=== PATIENT | male | born 1960 | race Caucasian/White ===

== ENCOUNTER → 2024-01-17 | Outpatient (CLI) | payer MEDICARE, OTHER | LOC: CPPFTMAIN 13:46 | PROVIDERS: ATTEND Internal Medicine | DX: J44.9 Chronic obstructive pulmonary disease, unspecified (principal) | CPT/HCPCS: 94060; 94726; 94729 ==

== ENCOUNTER 2024-02-17 09:00 | Day surgery (SDC) | payer MEDICARE, OTHER ==
[2024-02-17 09:49] VITALS: RESP 16; TEMP 96.9
[2024-02-17] MEDS: IV FLUID CONTINUATION 1,000 ML IV ONE (09:51)
[2024-02-17] MEDS: LACTATED RINGERS 1,000 ML IV SCH (09:51)
[2024-02-17] MEDS ORDERED: PROPOFOL 10 MG/ML 20 ML VIAL IV ONE (10:23)
[2024-02-17] MEDS ORDERED: LIDOCAINE 1% INJ 10MG/ML (20 ML MDV) ONE (10:23)
--- NOTE | 2024-02-17 10:45 | P.PCN ---
Date of Procedure: 02/17/24 Procedure(s) Performed: BRIEF HISTORY: Patient is a 64-year-old pleasant white male scheduled for an elective colonoscopy as a part of screening for colon cancer/positive Cologuard. PROCEDURE PERFORMED: Colonoscopy with snare polypectomy PREOPERATIVE DIAGNOSIS: Screening for colon cancer/positive Cologuard. IV sedation per Anesthesia. PROCEDURE: After informed consent was obtained, the patient, was brought into the endoscopy unit. IV sedation was administered by Anesthesia under continuous monitoring. Digital rectal examination was normal. Initially the Olympus CF-160 flexible video colonoscope was then inserted in the rectum, gradually advanced into the cecum without any difficulty. Careful examination was performed as the scope was gradually being withdrawn. Ileocecal valve and the appendiceal orifice were visualized and appeared normal. Prep was excellent. Mucosa of the cecum, ascending colon, transverse colon, descending colon appeared normal. The sigmoid colon there was a 1 cm polyp that was removed by snare polypectomy. Rest of the, sigmoid colon, and rectum appeared normal. Retroflexion was performed in the rectum and no lesions were seen. The patient tolerated the procedure well. IMPRESSION: 1 cm distal sigmoid colon polyp status post snare polypectomy Rest of the colon appeared normal RECOMMENDATIONS: Findings of this examination were discussed with the patient as well as his family.. He was advised to follow-up with the biopsy results. If the biopsy reveals adenoma he can have repeat colonoscopy in 3 years.
[2024-02-17 11:16] VITALS: BP 100/54; PULSE 55
== END 2024-02-17 11:24 | disposition home or self-care (01) ==
LOC: ORWHC2ENDO 09:00
PROVIDERS: ATTEND Internal Medicine Gastroenterology
DX: D12.5 Benign neoplasm of sigmoid colon (principal); J44.9 Chronic obstructive pulmonary disease, unspecified; F17.210 Nicotine dependence, cigarettes, uncomplicated; Z86.73 Personal history of transient ischemic attack (TIA), and cerebral infarction without residual deficits; Z88.0 Allergy status to penicillin; Z79.82 Long term (current) use of aspirin
CPT/HCPCS: 88305; 45385; J2003; J2704

== ENCOUNTER → 2024-06-19 | Outpatient (CLI) | payer MEDICARE, OTHER ==
[2024-06-19 16:44] LABS: ALT 18 U/L (10-49); AST 22 U/L (14-35); Albumin 4.5 g/dL (3.8-4.9); Albumin/Globulin Ratio 1.88 Ratio (1.60-3.17); Alkaline Phosphatase 108 U/L (41-126); BUN/Creat Ratio 17.22 Ratio (12.00-20.00); Blood Urea Nitrogen 15.5 mg/dL (9.0-27.0); Calcium 9.9 mg/dL (8.7-10.3); Carbon Dioxide 27.2 mmol/L (21.6-31.8); Chloride 107 mmol/L (96-109); Chol/HDL Ratio 3.63 Ratio; Globulin 2.4 g/dL (1.6-3.3); Glucose 97 mg/dL (70-110); LDL Cholesterol,Calculated 116.2 mg/dL (0.0-131.0); Potassium 4.4 mmol/L (3.5-5.5); Sodium 145 mmol/L (135-145); Total Bilirubin 0.7 mg/dL (0.3-1.2); Total Protein 6.9 g/dL (6.2-8.2)
[2024-06-19 16:46] LABS: Basophils # (A) 0.05 X 10*3/uL (0.00-0.10); Basophils % (A) 0.7 %; Eosinophils # (A) 0.12 X 10*3/uL (0.04-0.35); Eosinophils % (A) 1.6 %; HCT 44.5 % (39.6-50.0); HGB 15.2 g/dL (13.0-17.0); Lymphocytes % (A) 26.3 %; MCH 33.3 pg (27.0-32.0); MCHC 34.2 g/dL (32.0-37.0); MCV 97.4 FL (80.0-97.0); Mean Platelet Volume 10.7 FL (9.5-12.2); Monocytes # (A) 0.69 X 10*3/uL (0.20-1.00); Monocytes % (A) 9.1 %; NRBC Per 100 WBC 0 X 10*3/uL (0.00-0.01); Neutrophils # (A) 4.72 X 10*3/uL (1.80-7.70); Neutrophils % (A) 61.9 %; Platelet Count 219 X 10*3/uL (140-440); RBC 4.57 X 10*6/uL (4.40-5.60); WBC 7.61 X 10*3/uL (4.50-10.00)
== END | disposition home or self-care (01) ==
LOC: LABWHC1 08:52
PROVIDERS: ATTEND Internal Medicine
DX: E78.5 Hyperlipidemia, unspecified (principal); R73.01 Impaired fasting glucose
CPT/HCPCS: 36415; 80053; 80061; 83036; 85025

== ENCOUNTER 2024-09-30 18:01 | Observation (INO) | payer MEDICARE, OTHER ==
[2024-09-30] MEDS: NITROGLYCERIN EXTENDED RELEASE 2.5 MG CAPSULE.ER PO STA (18:36)
[2024-09-30] MEDS: NITROGLYCERIN SL TABS 0.4 MG TAB SUBLINGUAL STA ×3 (18:37→19:41)
[2024-09-30] MEDS: SODIUM CHLORIDE 0.9% 1,000 ML IV STA (19:36)
[2024-09-30] MEDS: ASPIRIN 81 MG PO STA (19:36)
[2024-09-30] MEDS: methylPREDNISolone SOD SUCCI 125 MG/2 ML VIAL IV STA (19:39)
[2024-09-30 19:45] LABS: Basophils # (A) 0.02 10*3/uL (0.00-0.10); Basophils % (A) 0.2 %; Eosinophils # (A) 0.08 10*3/uL (0.04-0.35); Eosinophils % (A) 0.7 %; HCT 40.3 % (39.6-50.0); HGB 14.5 g/dL (13.0-17.0); Lymphocytes # (A) 1.55 10*3/uL (0.90-5.00); Lymphocytes % (A) 14.4 %; MCH 34.4 pg (27.0-32.0); MCV 95.7 fL (80.0-97.0); Monocytes # (A) 0.91 10*3/uL (0.20-1.00); Monocytes % (A) 8.4 %; Neutrophils # (A) 8.21 10*3/uL (1.80-7.70); Platelet Count 204 10*3/uL (140-440); RBC 4.21 10*6/uL (4.40-5.60); RDW 13.5 % (11.5-14.5)
[2024-09-30 19:59] LABS: ALT 25 U/L (4-49); AST 29 U/L (17-59); African American GFR (CKD) >90 (>60 ml/min/1.73 sqM); Albumin 4.1 g/dL (3.5-5.0); Alkaline Phosphatase 91 U/L (38-126); Anion Gap 9 mmol/L; Blood Urea Nitrogen 11 mg/dL (9-20); Calcium 10.2 mg/dL (8.4-10.2); Carbon Dioxide 25 mmol/L (22-30); Chloride 105 mmol/L (98-107); Glucose 145 mg/dL (74-99); Lipase 82 U/L (23-300); Magnesium 1.8 mg/dL (1.6-2.3); Non-African American GFR(CKD) >90 (>60 ml/min/1.73 sqM); Potassium 3.9 mmol/L (3.5-5.1); Sodium 139 mmol/L (137-145); Total Bilirubin 0.7 mg/dL (0.2-1.3); Total Protein 6.7 g/dL (6.3-8.2)
[2024-09-30 20:01] LABS: INR 0.9 (<1.2); Partial Thromboplastin Time 22.9 sec (22.0-30.0); Prothrombin Time 10.4 sec (10.0-12.5)
[2024-09-30 20:07] LABS: NT-Pro-B-Type Natriuretic Pept 67 pg/mL
--- NOTE | 2024-09-30 20:18 | XR ---
EXAMINATION TYPE: XR chest 2V DATE OF EXAM: 09/30/2024 7:53 PM COMPARISON: Chest radiographs from 02/11/2012 CLINICAL INDICATION: Male, 64 years old with history of Chest Pain; [facility] TECHNIQUE: XR chest 2V Frontal and lateral views of the chest. FINDINGS: Lungs/Pleura: Prominent interstitial lung markings are seen scattered throughout the lungs. No eviden ce of focal consolidation, pneumothorax or pleural effusion. Pulmonary vascularity: Unremarkable. Heart/mediastinum: Cardiomediastinal silhouette is unremarkable. Musculoskeletal: No acute osseous pathology. IMPRESSION: Interstitial lung changes correlate for atypical pneumonia versus pulmonary edema. [facility], , 09/30/2024 8:16 PM
[2024-09-30] MEDS: NITROGLYCERIN OINT 1 INCH/GM PACKET TOPICAL SCH (20:20)
[2024-09-30 20:23] LABS: Influenza A Not Detected (Not Detectd); Influenza B Not Detected (Not Detectd); RSV Not Detected (Not Detectd)
[2024-09-30] MEDS: MORPHINE SULFATE 4 MG/ML SYRINGE IVP STA (20:26)
[2024-09-30] MEDS ORDERED: IPRATROPIUM-ALBUTEROL 3 ML NEB INHALATION PRN (20:26)
[2024-09-30] MEDS ORDERED: PNEUMONIA PROTOCOL UTILIZED 1 EACH MISC PO PRN (20:27)
[2024-09-30] MEDS ORDERED: ONDANSETRON 4 MG/2 ML VIAL IVP PRN (20:29)
[2024-09-30] MEDS ORDERED: NALOXONE 0.4 MG/ML 1 ML VIAL IV PRN (20:29)
--- NOTE | 2024-09-30 20:37 | ED ---
General Adult HPI - General Chief complaint: Chest Pain Stated complaint: chest pain Time Seen by Provider: 09/30/24 18:32 Source: patient, RN notes reviewed, old records reviewed Mode of arrival: ambulatory Limitations: no limitations - History of Present Illness Initial comments: Patient is a 64-year-old male who presents emergency department for left-sided chest pain. Has a history of COPD, prior TIA. Tobacco user. Is on inhalers at home. Has been having a mildly productive cough over the last few days. Has been having chest pain since yesterday. Located over the left side of his chest. Worse with deep inspiration. Worse with some movements but is not worse with palpation. Denies any diaphoresis, nausea, vomiting. Denies any cardiac history for himself but he does have a very substantial family cardiac history including a brother with multiple stents. Presents for further evaluation at this time. No history of lung disease travel. No recent blood clots or history of blood clots. No known sick contacts. - Related Data Home Medications Medication Instructions Recorded Confirmed Aspirin [Adult Low Dose Aspirin EC] 81 mg PO DIRECTED 02/15/24 02/17/24 Allergies Allergy/AdvReac Type Severity Reaction Status Date / Time ampicillin Allergy Rash/Hives Verified 09/30/24 18:14 Review of Systems ROS Statement: Those systems with pertinent positive or pertinent negative responses have been documented in the HPI. Review of Systems: CONST: Denies fever EYES: Denies blurry vision ENT: Denies nasal congestion C/V: Endorses chest pain RESP: Endorses cough, congestion GI: Denies abdominal pain : Denies dysuria SKIN: Denies rash. MSK: Denies joint pain. NEURO: Denies headache ROS Other: All systems not noted in ROS Statement are negative. Past Medical History Past Medical History: COPD, CVA/TIA, Respiratory Disorder Additional Past Medical History / Comment(s): TIA about 15 yrs ago; emphysema History of Any Multi-Drug Resistant Organisms: None Reported Past Surgical History: Orthopedic Surgery Additional Past Surgical History / Comment(s): left index finger surg; left knee arthroscopy Past Anesthesia/Blood Transfusion Reactions: No Reported Reaction Past Psychological History: No Psychological Hx Reported Smoking Status: Current every day smoker Past Alcohol Use History: Occasional Past Drug Use History: None Reported General Exam - General Exam Comments Initial Comments: General: Appears in no acute distress. HEAD: Normal with no signs of head trauma. EYES: PERRLA, EOMI, conjunctiva normal, no discharge. ENT: Hearing grossly intact, normal oropharynx. RESPIRATORY: Bilateral end expiratory wheezing. No significant hypoxia. No significant increased work of breathing. C/V: Regular rate and rhythm. S1 and S2 auscultated, no edema, peripheral pulses 2+ and intact throughout ABD: Abd is soft, nontender, nondistended EXT: Normal range of motion, no obvious deformity. Chest wall pain not reproducible on palpation. No evidence of flail chest. SKIN: No rashes or lesions observed on exposed skin. NEURO: Alert and oriented x 4. Limitations: no limitations Course Vital Signs 09/30/24 09/30/24 09/30/24 18:13 18:47 19:33 Temperature 97.9 F Pulse Rate 78 79 75 Respiratory 20 16 18 Rate Blood Pressure 153/74 116/70 106/72 O2 Sat by Pulse 94 L 95 97 Oximetry 09/30/24 19:43 Temperature Pulse Rate 75 Respiratory 18 Rate Blood Pressure 115/64 O2 Sat by Pulse 97 Oximetry Medical Decision Making - Medical Decision Making Was pt. sent in by a medical professional or institution (, PA, MANAGER COLLEGE, urgent care, hospital, or assisted...) When possible be specific @ -No Did you speak to anyone other than the patient for history (EMS, parent, family, police, friend...)? What history was obtained from this source @ -No Did you review nursing and triage notes (agree or disagree)? Why? @ -I reviewed and agree with nursing and triage notes Were old charts reviewed (outside hosp., previous admission, EMS record, old EKG, old radiological studies, urgent care reports/EKG's, assisted records)? Report findings @ -No old charts were reviewed Differential Diagnosis (chest pain, altered mental status, abdominal pain women, abdominal pain men, vaginal bleeding, weakness, fever, dyspnea, syncope, headache, dizziness, GI bleed, back pain, seizure, CVA, palpatations, mental health, musculoskeletal)? @ -Differential Chest Pain: Stable Angina, Unstable Angina, STEMI, NSTEMI Aortic Dissection, Pneumothorax, Musculoskeletal, Esophageal Spasm GERD, Cholecystitis, Pancreatitis, Zoster, this is not meant to be an all-inclusive list. EKG interpreted by me (3pts min.). @ -As above X-rays interpreted by me (1pt min.). @ -X-ray shows atypical pneumonia CT interpreted by me (1pt min.). @ -None done U/S interpreted by me (1pt. min.). @ -None done What testing was considered but not performed or refused? (CT, X-rays, U/S, labs)? Why? @ -None What meds were considered but not given or refused? Why? @ -None Did you discuss the management of the patient with other professionals (professionals i.e. , PA, MANAGER COLLEGE, lab, RT, psych nurse, social media campaign manager, conditioning machine operator, teacher, us customs and border officer, pillowcase folder)? Give summary @ -Discussed with NIR Quezada of [facility] who accepted the admission. Was smoking cessation discussed for >3mins.? @ -No Was critical care preformed (if so, how long)? @ -No Were there social determinants of health that impacted care today? How? ( Homelessness, low income, unemployed, alcoholism, drug addiction, transportation, low edu. Level, literacy, decrease access to med. care, half-way, rehab)? @ -No Was there de-escalation of care discussed even if they declined (Discuss DNR or withdrawal of care, Hospice)? DNR status @ -No What co-morbidities impacted this encounter? (DM, HTN, Smoking, COPD, CAD, Cancer, CVA, ARF, Chemo, Hep., AIDS, mental health diagnosis, sleep apnea, morbid obesity)? @ -COPD Was patient admitted / discharged? Hospital course, mention meds given and route, prescriptions, significant lab abnormalities, going to OR and other pertinent info. @ -Patient presents with atypical chest pain what appears to be a COPD exacerbation with possible respiratory infection. Will obtain cardiopulmonary workup. He will be given breathing treatment, IV steroids, IV fluids as well as nitro for the chest pain. He was in agreement this plan. Given 324 mg of aspirin. Vitals are within acceptable limits. Nitroglycerin did not have much effect on the patient's pain. Given morphine instead. EKG showed no signs of acute ischemia. Chest x-ray shows atypical pneumonia. Laboratory studies remarkable for mild leukocytosis of 10.8. Undetectable troponin. BNP within normal limits. D-dimer within acceptable limits. Viral swabs negative. On reevaluation, I discussed his workup. He will be admitted to observation for his atypical pneumonia, COPD exacerbation, chest pain. Cardiology and pulmonology consulted. Echo ordered. He will be initiated on Rocephin and azithromycin. Patient was in agreement this plan. I discussed case with the admitting provider, Pilar GUERIN who accepted the admission. Undiagnosed new problem with uncertain prognosis? @ -No Drug Therapy requiring intensive monitoring for toxicity (Heparin, Nitro, Insulin, Cardizem)? @ -No Were any procedures done? @ -No Diagnosis/symptom? @ -Chest pain, COPD, atypical pneumonia Acute, or Chronic, or Acute on Chronic? @ -Acute Uncomplicated (without systemic symptoms) or Complicated (systemic symptoms)? @ -Complicated Side effects of treatment? @ -No Exacerbation, Progression, or Severe Exacerbation? @ -No Poses a threat to life or bodily function? How? (Chest pain, USA, MD, pneumonia, PE, COPD, DKA, ARF, appy, cholecystitis, CVA, Diverticulitis, Homicidal, Suicidal, threat to staff... and all critical care pts) @ -Potentially, yes - Lab Data Result diagrams: 09/30/24 19:25 09/30/24 19:25 Lab Results 09/30/24 09/30/24 09/30/24 Range/Units 19:25 19:25 19:25 WBC 10.80 H (4.50-10.00) 10*3/uL RBC 4.21 L (4.40-5.60) 10*6/uL Hgb 14.5 (13.0-17.0) g/dL Hct 40.3 (39.6-50.0) % MCV 95.7 (80.0-97.0) fL MCH 34.4 H (27.0-32.0) pg MCHC 36.0 (32.0-37.0) g/dL Plt Count 204 (140-440) 10*3/uL MPV 10.0 (9.5-12.2) fL Immature Gran % (Auto) 0.3 % Neutrophils % 76.0 % Lymphocytes % 14.4 % Monocytes % 8.4 % Eosinophils % 0.7 % Basophils % 0.2 % Immature Gran # 0.03 (0.00-0.04) 10*3/uL Neutrophils # 8.21 H (1.80-7.70) 10*3/uL Lymphocytes # 1.55 (0.90-5.00) 10*3/uL Monocytes # 0.91 (0.20-1.00) 10*3/uL Eosinophils # 0.08 (0.04-0.35) 10*3/uL Basophils # 0.02 (0.00-0.10) 10*3/uL PT 10.4 (10.0-12.5) sec INR 0.9 (<1.2) APTT 22.9 (22.0-30.0) sec D-Dimer 0.32 (<0.60) mg/L FEU Sodium 139 (137-145) mmol/L Potassium 3.9 (3.5-5.1) mmol/L Chloride 105 (98-107) mmol/L Carbon Dioxide 25 (22-30) mmol/L Anion Gap 9 mmol/L BUN 11 (9-20) mg/dL Creatinine 0.71 (0.66-1.25) mg/dL Est GFR (CKD-EPI)AfAm >90 (>60 ml/min/1.73 sqM) Est GFR (CKD-EPI)NonAf >90 (>60 ml/min/1.73 sqM) Glucose 145 H (74-99) mg/dL Calcium 10.2 (8.4-10.2) mg/dL Magnesium 1.8 (1.6-2.3) mg/dL Total Bilirubin 0.7 (0.2-1.3) mg/dL AST 29 (17-59) U/L ALT 25 (4-49) U/L Alkaline Phosphatase 91 (38-126) U/L Troponin I (0.000-0.034) ng/mL NT-Pro-B Natriuret Pep 67 pg/mL Total Protein 6.7 (6.3-8.2) g/dL Albumin 4.1 (3.5-5.0) g/dL Lipase 82 (23-300) U/L Influenza Type A (PCR) (Not Detectd) Influenza Type B (PCR) (Not Detectd) RSV (PCR) (Not Detectd) SARS-CoV-2 (PCR) (Not Detectd) 09/30/24 09/30/24 Range/Units 19:25 19:34 WBC (4.50-10.00) 10*3/uL RBC (4.40-5.60) 10*6/uL Hgb (13.0-17.0) g/dL Hct (39.6-50.0) % MCV (80.0-97.0) fL MCH (27.0-32.0) pg MCHC (32.0-37.0) g/dL Plt Count (140-440) 10*3/uL MPV (9.5-12.2) fL Immature Gran % (Auto) % Neutrophils % % Lymphocytes % % Monocytes % % Eosinophils % % Basophils % % Immature Gran # (0.00-0.04) 10*3/uL Neutrophils # (1.80-7.70) 10*3/uL Lymphocytes # (0.90-5.00) 10*3/uL Monocytes # (0.20-1.00) 10*3/uL Eosinophils # (0.04-0.35) 10*3/uL Basophils # (0.00-0.10) 10*3/uL PT (10.0-12.5) sec INR (<1.2) APTT (22.0-30.0) sec D-Dimer (<0.60) mg/L FEU Sodium (137-145) mmol/L Potassium (3.5-5.1) mmol/L Chloride (98-107) mmol/L Carbon Dioxide (22-30) mmol/L Anion Gap mmol/L BUN (9-20) mg/dL Creatinine (0.66-1.25) mg/dL Est GFR (CKD-EPI)AfAm (>60 ml/min/1.73 sqM) Est GFR (CKD-EPI)NonAf (>60 ml/min/1.73 sqM) Glucose (74-99) mg/dL Calcium (8.4-10.2) mg/dL Magnesium (1.6-2.3) mg/dL Total Bilirubin (0.2-1.3) mg/dL AST (17-59) U/L ALT (4-49) U/L Alkaline Phosphatase (38-126) U/L Troponin I <0.012 (0.000-0.034) ng/mL NT-Pro-B Natriuret Pep pg/mL Total Protein (6.3-8.2) g/dL Albumin (3.5-5.0) g/dL Lipase (23-300) U/L Influenza Type A (PCR) Not Detected (Not Detectd) Influenza Type B (PCR) Not Detected (Not Detectd) RSV (PCR) Not Detected (Not Detectd) SARS-CoV-2 (PCR) Not Detected (Not Detectd) - EKG Data -: EKG Interpreted by Me EKG Comments: 12-lead Electrocardiogram Interpretation Note EKG was reviewed and interpreted by myself. 12-lead ECG performed at 1915 is interpreted by me as revealing normal sinus rhythm with occasional PAC at a rate of 73 beats per minute. [place] is normal. GA interval is 155 ms, QRS duration 79 ms, QTc is 3 2020 ms.. There were no ST or T wave abnormalities to suggest myocardial ischemia or injury. R wave progression across the precordium was satisfactory. By my interpretation this EKG is non-diagnostic for acute ischemia. Disposition Clinical Impression: Chest pain, Atypical pneumonia, COPD (chronic obstructive pulmonary disease) Disposition: ADMITTED IP TO THIS HOSP Condition: Stable Referrals: Bradford Serrano MD [Primary Care Provider] - 1-2 days Time of Disposition: 20:29
[2024-09-30] MEDS: IPRATROPIUM-ALBUTEROL 3 ML NEB INHALATION STA (20:53)
[2024-09-30] MEDS: SODIUM CHLORIDE 0.9% 1,000 ML IV SCH (22:09)
[2024-09-30] MEDS: AZITHROMYCIN 500 MG in SODIUM CHLORIDE 0.9% 250 ML IVPB STA (23:01)
[2024-09-30] MEDS: MORPHINE SULFATE 4 MG/ML SYRINGE IV PRN (23:02)
[2024-10-01] MEDS: methylPREDNISolone SOD SUCCI 40 MG/ML 1 ML VIAL IV SCH (00:32)
[2024-10-01 00:35] LABS: Appearance,Urine Clear (Clear); Bilirubin,Urine Negative (Negative); Blood,Urine Negative (Negative); Color,Urine Yellow; Glucose,Urine (UA) Negative (Negative); Ketones,Urine Negative (Negative); Leukocyte Esterase,Urine Negative (Negative); Nitrite,Urine Negative (Negative); Protein,Urine Negative (Negative); Specific Gravity,Urine 1.017 (1.001-1.035); Urobilinogen,Urine <2.0 mg/dL (<2.0)
--- NOTE | 2024-10-01 00:54 | HP ---
HISTORY AND PHYSICAL CHIEF COMPLAINT: Chest pain and shortness of breath. HISTORY OF PRESENT ILLNESS: This is a 64-year-old gentleman with a past medical history of multiple medical problems including COPD, who used to work on wooden boats, is complaining of sudden onset of chest pain, especially with respiration on the left side, and also shortness of breath. The patient came to [facility]. White count is elevated, COVID was negative, and the chest x-ray which I reviewed personally, showed some increased bronchovascular markings suggestive of possible atypical pneumonia. The patient admitted for further evaluation and treatment. There is no history of any fever, rigors, or chills at this time. PAST MEDICAL HISTORY: COPD. Rest of the history and chart is also reviewed. HOME MEDICATIONS: Aspirin. ALLERGIES: Ampicillin. FAMILY HISTORY: No history of heart disease or strokes in family. SOCIAL HISTORY: Smoking, recently took it up again. REVIEW OF SYSTEMS: A 14-point review of systems is negative, except as mentioned earlier. PHYSICAL EXAMINATION: VITAL SIGNS: Pulse is 75, blood pressure 115/64, and respirations 18. HEENT: Conjunctivae normal. NECK: No JVD. CARDIOVASCULAR: S1, S2. RESPIRATIONS: A few scattered rhonchi and crackles. ABDOMEN: Soft, nontender. LEGS: No edema. NERVOUS SYSTEM: Nonfocal. LABORATORY DATA: Reviewed. ASSESSMENT: 1. Chronic obstructive pulmonary disease, acute exacerbation. 2. Acute bilateral pneumonia, possibly gram-negative interstitial pneumonia. 3. Elevated WBC. 4. History of nicotine dependence. 5. History of TIA. RECOMMENDATIONS: This 64-year-old gentleman presented with multiple complex medical problems. We will monitor the patient closely. I would recommend continue the bronchodilators, empiric antibiotics, steroids. Consult Dr. Kendrick. The patient is extremely keen on going home tomorrow. We will continue to monitor. I would also recommend mycoplasma and Legionella testing also. Guarded prognosis. Further recommendations to follow. 2D echo also has been ordered to rule out the possibility of CHF. The NT proBNP is normal. MMODL / IJN: [id number] /
[2024-10-01] MEDS: IPRATROPIUM-ALBUTEROL 3 ML NEB INHALATION SCH ×2 (01:00→08:48)
--- NOTE | 2024-10-01 04:22 | P.CNPUL ---
History of Present Illness Consult date: 10/01/24 Requesting physician: Cole Fink Reason for consult: COPD, pneumonia Chief complaint: Left-sided chest pain, shortness of breath History of present illness: Patient is a 64-year-old male with past medical history significant for COPD, prior TIA, current ongoing tobacco dependence. His primary care provider is Dr. Bradford Serrano. Patient does not follow with a emulsification operator. Did have a previous pulmonary function test January, with an FEV1/FVC 48%, FEV1 was 2.34 L or 61% of predicted. DLCO uncorrected for hemoglobin, was 31% predicted. Patient states that he is a long-term 2 pack/day smoker, and recently cut back this year only smokes a cigarette every day or so. 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 Does not use a steroid maintenance inhaler. Patient presented emergency department last night complaining of left-sided chest pain especially worse with inspiration and coughing. He has had an increased "raspy" cough and generalized muscle aches over the last couple days. Was at a car show in [place] on Tuesday and walking around all day without any trouble breathing. He went home, where he developed severe left-sided chest pain and difficulty breathing. States he felt like he could not take a deep breath in. He was given a DuoNeb treatment in the ED which reportedly helped his symptoms. He was also loaded with IV Solu-Medrol. Chest x-ray showing hyperinflation with interstitial lung changes, possible atypical pneumonia or pulmonary edema. No focal consolidations, pneumothoraces, or pleural effusions. No prior imaging for comparison. Empirically started on azithromycin and Rocephin. CBC with a WBC count of 10.8, hemoglobin 14.5, platelets 204. D-dimer 0.32. CMP is unremarkable, electrolytes WDL, creatinine 0.71, glucose 145. EKG: Normal sinus rhythm, rate 73 bpm, occasional PAC. No acute ischemic changes. Troponins less than 0.012 x 3. NT proBNP not significantly elevated. Viral 4 Plex negative for influenza A/B, RSV, COVID. Patient being evaluated on the sixth floor. He is resting comfortably on room air. Does not appear to be in any respiratory distress. Chest pain has improved. Cough is nonproductive. No significant sputum production. No hemoptysis. No fevers or chills. Current vital signs: Temperature 97.9 F, heart rate 68 bpm, blood pressure 108/69 mmHg, nontachypneic on, SpO2 recorded 96% on room air. EKG: Normal sinus rhythm, Review of Systems Constitutional: Denies chills, Denies fatigue, Denies fever, Denies night sweats, Denies poor appetite, Denies weight gain, Denies weight loss Ears, nose, mouth and throat: Denies headache, Denies nasal congestion, Denies nasal discharge, Denies post-nasal drip, Denies sinus pain, Denies sinus pressure, Denies sore throat Cardiovascular: Reports chest pain, Denies leg edema, Denies lightheadedness, Denies orthopnea, Denies palpitations, Denies paroxysmal nocturnal dyspnea, Denies syncope Respiratory: Reports as per HPI Gastrointestinal: Denies abdominal pain, Denies diarrhea, Denies nausea, Denies vomiting Genitourinary: Denies dysuria Musculoskeletal: Denies limitation of motion Integumentary: Denies rash Neurological: Denies seizures, Denies syncope Psychiatric: Denies anxiety, Denies depression Past Medical History Past Medical History: COPD, CVA/TIA, Respiratory Disorder Additional Past Medical History / Comment(s): TIA about 15 yrs ago; emphysema History of Any Multi-Drug Resistant Organisms: None Reported Past Surgical History: Orthopedic Surgery Additional Past Surgical History / Comment(s): left index finger surg; left knee arthroscopy Past Anesthesia/Blood Transfusion Reactions: No Reported Reaction Past Psychological History: No Psychological Hx Reported Smoking Status: Current every day smoker Past Alcohol Use History: Occasional Additional Past Alcohol Use History / Comment(s): smokes one ppd x 50 yrs; drinks about twice a month socially- advised no alcohol 24 hrs prior to proc. Past Drug Use History: Marijuana Medications and Allergies Home Medications Medication Instructions Recorded Confirmed Type Aspirin [Adult Low Dose Aspirin EC] 81 mg PO DIRECTED 02/15/24 02/17/24 History Allergies Allergy/AdvReac Type Severity Reaction Status Date / Time ampicillin Allergy Rash/Hives Verified 09/30/24 18:14 Physical Exam Vitals: Vital Signs Temp Pulse Pulse Resp BP BP Pulse Ox 10/01/24 00:15 97.9 F 68 16 108/69 96 09/30/24 23:35 98.1 F 82 18 108/72 96 09/30/24 21:02 84 09/30/24 20:54 66 09/30/24 19:43 75 18 115/64 97 09/30/24 19:33 75 18 106/72 97 09/30/24 18:47 79 16 116/70 95 09/30/24 18:13 97.9 F 78 20 153/74 94 L Intake and Output 09/30/24 09/30/24 10/01/24 14:59 22:59 06:59 Other: Weight 68.039 kg 68.039 kg GENERAL EXAM: Alert, 64-year-old male, on room air, comfortable in no apparent distress. HEAD: Normocephalic and atraumatic EYES: Normal reaction of pupils, equal size. NOSE: Clear with pink turbinates. THROAT: No erythema or exudates. NECK: No masses, no JVD. CHEST: No chest wall deformity. LUNGS: Equal air entry with no crackles, wheeze, rhonchi or dullness. No conversational dyspnea or accessory muscle use.. CVS: S1 and S2 normal with no audible murmur, regular rhythm. No extra heart sounds ABDOMEN: No hepatosplenomegaly, active bowel sounds, no guarding or rigidity. SPINE: No scoliosis or deformity SKIN: No rashes CENTRAL NERVOUS SYSTEM: No focal deficits, tone is normal in all 4 extremities. EXTREMITIES: There is no peripheral edema, clubbing, or cyanosis. Peripheral pulses are intact. Results - Laboratory Findings CBC and BMP: 09/30/24 19:25 09/30/24 19:25 PT/INR, D-dimer PT 10.4 sec (10.0-12.5) 09/30/24 19: INR 0.9 (<1.2) 09/30/24 19: D-Dimer 0.32 mg/L FEU (<0.60) 09/30/24 19:25 Abnormal lab findings: Abnormal Labs 09/30/24 09/30/24 19:25 19:25 WBC 10.80 H RBC 4.21 L MCH 34.4 H Neutrophils # 8.21 H Glucose 145 H - Diagnostic Findings Chest x-ray: image reviewed Assessment and Plan Assessment: Acute COPD exacerbation Acute dyspnea, secondary to above, chest x-ray showing prominent interstitial lung markings bilaterally. No focal consolidation, pneumothoraces, or pleural effusions. Findings were concerning for possible atypical pneumonia or pulmonary edema. Viral screen negative for influenza A/B, RSV, COVID. NT-proBN P low. Current ongoing tobacco dependence Moderate chronic obstructive pulmonary disease, with an FEV1 61% of predicted History of TIA Plan: Patient's medications, labs, chest x-ray reviewed Continue combination of DuoNebs, Symbicort inhaler, and IV Solu-Medrol Previously started on azithromycin and Rocephin in the ED Obtain procalcitonin level Urine Legionella antigen pending Viral 4 Plex negative for influenza A/B, RSV, COVID Smoking cessation counseling performed Nicotine patch offered Case reviewed with Dr. Fraser, further recommendations to follow I have personally seen and examined the patient, performed the documentation and the assessment and plan as written. Number of minutes spent on the visit:20 This dictation was produced using [employer] dictation software please excuse gr ammatical errors Time with Patient: Greater than 30
--- NOTE | 2024-10-01 07:14 | P.CRDCN ---
History of Present Illness History of present illness: HISTORY OF PRESENTING ILLNESS This is a pleasant 64-year-old with past medical history significant for tobacco abuse, prior TIA, COPD, family history of CAD. He has not seen a outdoor education teacher previously. He states that he has had a chronic cough over the past few years. He had more of a coughing episode the last few days and then had fairly intense left-sided chest pain over his 10th rib. Chest pain worse with deep inspiration as well as with exhaling and he felt somewhat more short of breath with this as well. Shortness of breath. More related to not being able to take an deep br eath. He denied any nausea or diaphoresis. He had nitroglycerin with no improvement and also had inhalers and steroids with significant improvement and now feels significantly better. He feels back to his normal self and I even feels better than before. He has only been using albuterol inhalers and is agreeable to taking him more of a maintenance inhaler. He is still smoking however attempting to quit. He does have family history of number of brothers with MIs and stents however they also diabetes as well as father having bypass in his 70s. Troponins normal, D-dimer normal. REVIEW OF SYSTEMS At the time of my exam: CONSTITUTIONAL: Denies fever or chills. CARDIOVASCULAR: +chest pain, +shortness of breath, no orthopnea, PND or palpitations. RESPIRATORY: Denies cough. GASTROINTESTINAL: Denies abdominal pain, diarrhea, constipation, nausea or vomiting. MUSCULOSKELETAL: Denies myalgias. NEUROLOGIC: Denies numbness, tingling or weakness. ENDOCRINE: Denies fatigue, weight change, polydipsia or polyurina. GENITOURINARY: Denies burning, hematuria or urgency with micturation. HEMATOLOGIC: Denies history of anemia or bleeding. PHYSICAL EXAMINATION Vital signs reviewed. CONSTITUTIONAL: No apparent distress. HEENT: Head is normocephalic. Pupils are equal, round. Sclerae anicteric. Mucous membranes of the mouth are moist. No JVD. No carotid bruit. CHEST EXAMINATION: Lungs are clear to auscultation. No chest wall tenderness is noted on palpation or with deep breathing. HEART EXAMINATION: Regular rate and rhythm. S1, S2 heard. No murmurs, gallops or rub. ABDOMEN: Soft, nontender. Positive bowel sounds. EXTREMITIES: 2+ peripheral pulses, no lower extremity edema and no calf tenderness. NEUROLOGIC EXAMINATION: Patient is awake, alert and oriented x3. ASSESSMENT Atypical chest pain, more pleuritic worse with cough and deep inspiration, does not appear cardiac Dyspnea COPD Chronic cough Borderline hypertension Family history of CAD Tobacco abuse PLAN Patient's chest pain is atypical and does not appear cardiac. Workup with troponins and D-dimer and EKG unrevealing. Check 2D echo and may consider outpatient stress testing. Patient is cleared from a cardiology standpoint for discharge home. Past Medical History Past Medical History: COPD, CVA/TIA, Respiratory Disorder Additional Past Medical History / Comment(s): TIA about 15 yrs ago; emphysema History of Any Multi-Drug Resistant Organisms: None Reported Past Surgical History: Orthopedic Surgery Additional Past Surgical History / Comment(s): left index finger surg; left knee arthroscopy Past Anesthesia/Blood Transfusion Reactions: No Reported Reaction Past Psychological History: No Psychological Hx Reported Smoking Status: Current every day smoker Past Alcohol Use History: Occasional Additional Past Alcohol Use History / Comment(s): smokes one ppd x 50 yrs; drinks about twice a month socially- advised no alcohol 24 hrs prior to proc. Past Drug Use History: Marijuana Medications and Allergies Home Medications Medication Instructions Recorded Confirmed Type Aspirin [Adult Low Dose Aspirin EC] 81 mg PO DIRECTED 02/15/24 02/17/24 History Allergies Allergy/AdvReac Type Severity Reaction Status Date / Time ampicillin Allergy Rash/Hives Verified 09/30/24 18:14 Physical Exam Vitals: Vital Signs Temp Pulse Pulse Resp BP BP Pulse Ox 10/01/24 00:15 97.9 F 68 16 108/69 96 09/30/24 23:35 98.1 F 82 18 108/72 96 09/30/24 21:02 84 09/30/24 20:54 66 09/30/24 19:43 75 18 115/64 97 09/30/24 19:33 75 18 106/72 97 09/30/24 18:47 79 16 116/70 95 09/30/24 18:13 97.9 F 78 20 153/74 94 L Intake and Output 09/30/24 10/01/24 10/01/24 22:59 06:59 14:59 Other: # Voids 1 Weight 68.039 kg 68.039 kg Results 09/30/24 19:25 06/15/25 19:25 Cardiac Enzymes 09/30/24 09/30/24 09/30/24 Range/Units 19:25 19:25 22:19 AST 29 (17-59) U/L Troponin I <0.012 <0.012 (0.000-0.034) ng/mL 10/01/24 Range/Units 02:30 AST (17-59) U/L Troponin I <0.012 (0.000-0.034) ng/mL Coagulation 09/30/24 Range/Units 19:25 PT 10.4 (10.0-12.5) sec APTT 22.9 (22.0-30.0) sec CBC 09/30/24 Range/Units 19:25 WBC 10.80 H (4.50-10.00) 10*3/uL RBC 4.21 L (4.40-5.60) 10*6/uL Hgb 14.5 (13.0-17.0) g/dL Hct 40.3 (39.6-50.0) % Plt Count 204 (140-440) 10*3/uL Comprehensive Metabolic Panel 09/30/24 Range/Units 19:25 Sodium 139 (137-145) mmol/L Potassium 3.9 (3.5-5.1) mmol/L Chloride 105 (98-107) mmol/L Carbon Dioxide 25 (22-30) mmol/L BUN 11 (9-20) mg/dL Creatinine 0.71 (0.66-1.25) mg/dL Glucose 145 H (74-99) mg/dL Calcium 10.2 (8.4-10.2) mg/dL AST 29 (17-59) U/L ALT 25 (4-49) U/L Alkaline Phosphatase 91 (38-126) U/L Total Protein 6.7 (6.3-8.2) g/dL Albumin 4.1 (3.5-5.0) g/dL Current Medications Generic Name Dose Route Start Last Admin Trade Name Freq PRN Reason Stop Dose Admin Albuterol/Ipratropium 3 ml 10/01/24 00:00 10/01/24 05:10 Ipratropium-Albuterol 3 Ml Neb INHALATION Not Given RT-Q4H ANTONIO Albuterol/Ipratropium 3 ml 09/30/24 20:26 Ipratropium-Albuterol 3 Ml Neb INHALATION RT-Q2H PRN Shortness Of Breath Or Wheezing Azithromycin 500 mg 10/01/24 21:00 Azithromycin 500 Mg Tab PO 10/02/24 21:01 HS [facility] Protocol Budesonide/Formoterol Fumarate 2 puff 10/01/24 08:00 Symbicort 160-4.5 Mcg Inhaler INHALATION RT-BID [facility] Enoxaparin Sodium 40 mg 10/01/24 09:00 Enoxaparin 40 Mg/0.4 Ml Syringe SQ DAILY [facility] Ceftriaxone Sodium 2 gm/ 50 mls @ 100 mls/hr 10/01/24 21:00 Sodium Chloride IVPB 10/04/24 21:29 Q24H [facility] Protocol Methylprednisolone Sodium Succinate 40 mg 10/01/24 00:00 10/01/24 00:32 Methylprednisolone Sod Succi 40 Mg/Ml 1 Ml Vial IV 40 mg Q8HR ANTONIO Administration Miscellaneous Information 1 each 09/30/24 20:27 Pneumonia Protocol Utilized 1 Each Misc PO ONCE PRN Per Protocol Morphine Sulfate 4 mg 09/30/24 20:29 09/30/24 23:02 Morphine Sulfate 4 Mg/Ml Syringe IV 4 mg Q4HR PRN Administration Severe Pain (Scale 7 to 10) Naloxone HCl 0.2 mg 09/30/24 20:29 Naloxone 0.4 Mg/Ml 1 Ml Vial IV Q2M PRN Opioid Reversal Ondansetron HCl 4 mg 09/30/24 20:29 Ondansetron 4 Mg/2 Ml Vial IVP Q8HR PRN Nausea And Vomiting Intake and Output 09/30/24 10/01/24 10/01/24 22:59 06:59 14:59 Other: # Voids 1 Weight 68.039 kg 68.039 kg 09/30/24 19:25 09/30/24 19:25
[2024-10-01 08:00] VITALS: BP 150/78; TEMP 97.6
[2024-10-01] MEDS: ENOXAPARIN 40 MG/0.4 ML SYRINGE SQ SCH (08:02)
[2024-10-01 08:08] LABS: Basophils # (A) 0.01 X 10*3/uL (0.00-0.10); Basophils % (A) 0.2 %; Eosinophils # (A) 0 X 10*3/uL (0.04-0.35); Eosinophils % (A) 0 %; HCT 37.7 % (39.6-50.0); HGB 12.7 g/dL (13.0-17.0); Lymphocytes # (A) 0.62 X 10*3/uL (0.90-5.00); Lymphocytes % (A) 10.4 %; MCH 33.2 pg (27.0-32.0); MCHC 33.7 g/dL (32.0-37.0); MCV 98.4 FL (80.0-97.0); Mean Platelet Volume 10.4 FL (9.5-12.2); Monocytes # (A) 0.05 X 10*3/uL (0.20-1.00); Monocytes % (A) 0.8 %; NRBC Per 100 WBC 0 X 10*3/uL (0.00-0.01); Neutrophils # (A) 5.28 X 10*3/uL (1.80-7.70); Neutrophils % (A) 88.3 %; Platelet Count 210 X 10*3/uL (140-440); RBC 3.83 X 10*6/uL (4.40-5.60); RDW 13.9 % (11.5-14.5); WBC 5.98 X 10*3/uL (4.50-10.00)
[2024-10-01 08:26] LABS: ALT 24 U/L (10-49); AST 22 U/L (14-35); Albumin 3.8 g/dL (3.8-4.9); Albumin/Globulin Ratio 1.73 Ratio (1.60-3.17); Alkaline Phosphatase 87 U/L (41-126); BUN/Creat Ratio 13.71 Ratio (12.00-20.00); Blood Urea Nitrogen 9.6 mg/dL (9.0-27.0); Calcium 9.2 mg/dL (8.7-10.3); Chloride 107 mmol/L (96-109); Globulin 2.2 g/dL (1.6-3.3); Glucose 182 mg/dL (70-110); Potassium 4.3 mmol/L (3.5-5.5); Sodium 140 mmol/L (135-145); Total Bilirubin 0.3 mg/dL (0.3-1.2)
[2024-10-01] MEDS: SYMBICORT 160-4.5 MCG INHALER INHALATION SCH (08:48)
[2024-10-01 08:59] VITALS: RESP 18
--- NOTE | 2024-10-01 09:53 | XR ---
EXAMINATION TYPE: XR chest 2V DATE OF EXAM: 10/01/2024 7:15 AM COMPARISON: 09/30/2024 CLINICAL INDICATION: Male, 64 years old with history of pneumonia, history of recent chest pain TECHNIQUE: XR chest 2V view(s) obtained. FINDINGS: The heart size is normal. The pulmonary vasculature is normal. Diffuse increased lung markings. Findings are nonspecific. Consider atypical pulmonary edema or pneum onia. Follow-up recommended. IMPRESSION: 1. Diffuse increased lung markings are present consider atypical pulmonary edema or atypical pneumoni a. Findings appear stable from comparison. Continued follow-up is recommended. [facility], , 10/01/2024 9:51 AM
[2024-10-01] MEDS: predniSONE 20 MG TAB PO SCH (10:04)
[2024-10-01 12:16] VITALS: PULSE 77
[2024-10-01] MEDS ORDERED: AZITHROMYCIN 500 MG TAB PO SCH (21:00)
--- NOTE | 2024-10-02 08:59 | P.DS ---
Providers Date of admission: 09/30/24 20:31 Expected date of discharge: 10/01/24 Attending physician: Josi Vizcarra Consults: 09/30/24 20:28 Consult Physician Routine Consulting Provider: [facility] Consult Reason/Comments: chest pain Do you want consulting provider notified?: Yes Consult Physician Routine Consulting Provider: Delia Kendrick Consult Reason/Comments: copd, atypical pneumonia Do you want consulting provider notified?: Yes Primary care physician: Bradford Serrano MD Hospital Course: Final diagnosis Chronic obstructive pulmonary disease acute exacerbation Acute bilateral pneumonia, possibly gram-negative interstitial pneumonia Elevated white blood count, multifactorial likely secondary to bilateral pneumonia as well as steroid effect History of continued ongoing nicotine dependence History of TIA History of emphysema GI prophylaxis DVT prophylaxis Full code Discharge disposition Patient is being discharged in a stable condition with guarded prognosis to home. Patient will follow-up with Dr. Serrano in the outpatient setting upon discharge. Patient is to continue with steroid taper along with inhalers and DuoNeb treatments with outpatient follow-up with cardiology as well as pulmonary as scheduled. Patient to follow-up with cardiology outpatient to discuss possible outpatient stress testing. Total time taken is greater than 35 minutes. Hospital course This is a 64-year-old male who was recently admitted with increasing shortness of breath with COPD acute exacerbation along with concerns of acute bilateral pneumonia possibly gram-negative. Patient maintained on antibiotics and procalcitonin was minimally elevated at 0.20 other cultures including virology testing, influenza, RSV, COVID were all negative. Patient will continue a short course of oral antibiotics, prednisone taper, continued breathing treatments and recommend outpatient follow-up with cardiology as well as pulmonary. Patient did have a 2D echo ordered per cardiology and this was discussed and will be following up outpatient to discuss stress test along with echo. Patient is denying any chest pain or worsening shortness of breath reporting he feels significantly improved and would like to go home. Patient has been cleared by consultations. Please refer to consultation notes for further HPI. Stressed the importance of complete tobacco cessation along with exposure to. Currently no reports of chest pain, shortness of breath, or palpitations. Patient is afebrile. No reports of nausea or vomiting and patient is tolerating diet. Patient keen on going home today. Patient will be discharged home today. Guarded prognosis. Physical exam: Gen: This is a 64-year-old male who is awake, alert and oriented x 3, well- developed, elderly appearing, thin built HEENT: Head is atraumatic, normocephalic. Pupils equal, round. Sclerae is anicteric. NECK: Supple. No JVD. No lymphadenopathy. No thyromegaly. LUNGS: Diminished breath sounds bilaterally with a few faint expiratory wheezes and scattered rhonchi. No intercostal retractions. HEART: S1, S2 are muffled ABDOMEN: Soft. Thin. Bowel sounds are present. No masses. No tenderness. EXTREMITIES: No pedal edema. No calf tenderness. NEUROLOGICAL: Patient is awake, alert and oriented x3. Cranial nerves 2 through 12 are grossly intact. Please refer to medication reconciliation sheet for a list of medications. The impression and plan of care has been dictated by Pilar Blum, Nurse Practitioner as directed. Dr. Zackery MD I have performed a history and examination and MDM of this patient, discussed the same with the dictator, and agree with the dictator's assessment and plan as written ,documented as a scribe. Based on total visit time, I have performed more than 50% of the visit. Patient Condition at Discharge: Stable Plan - Discharge Summary Discharge Rx Participant: No New Discharge Prescriptions: New cefuroxime axetiL [Ceftin] 500 mg PO BID 5 Days #10 tab Ipratropium-Albuterol Nebulize [Duoneb 0.5 mg-3 mg/3 ml Soln] 3 ml INHALATION RT-QID #100 each Ipratropium-Albuterol Nebulize [Duoneb 0.5 mg-3 mg/3 ml Soln] 3 ml INHALATION RT-Q2H PRN each PRN Reason: Shortness Of Breath Or Wheezing Budesonide-Formot 160-4.5 Mcg [Symbicort 160-4.5 Mcg Inhaler] 2 puff INHALATION RT-BID 30 Days #1 each Azithromycin [Zithromax] 500 mg PO DAILY 5 Days #5 tab predniSONE See Taper PO DIRECTED #30 tab Continue Albuterol Sulfate [Albuterol Sulfate Hfa] 2 puff INHALATION RT-Q6H PRN PRN Reason: Shortness Of Breath Aspirin [Adult Low Dose Aspirin EC] 81 mg PO DAILY Discharge Medication List Aspirin [Adult Low Dose Aspirin EC] 81 mg PO DAILY 02/15/24 [History] Albuterol Sulfate [Albuterol Sulfate Hfa] 2 puff INHALATION RT-Q6H PRN 10/01/24 [History] Azithromycin [Zithromax] 500 mg PO DAILY 5 Days #5 tab 10/01/24 [Rx] Budesonide-Formot 160-4.5 Mcg [Symbicort 160-4.5 Mcg Inhaler] 2 puff INHALATION RT-BID 30 Days #1 each 10/01/24 [Rx] Ipratropium-Albuterol Nebulize [Duoneb 0.5 mg-3 mg/3 ml Soln] 3 ml INHALATION RT-Q2H PRN each 10/01/24 [Rx] Ipratropium-Albuterol Nebulize [Duoneb 0.5 mg-3 mg/3 ml Soln] 3 ml INHALATION RT-QID #100 each 10/01/24 [Rx] cefuroxime axetiL [Ceftin] 500 mg PO BID 5 Days #10 tab 10/01/24 [Rx] predniSONE See Taper PO DIRECTED #30 tab 10/01/24 [Rx] Follow up Appointment(s)/Referral(s): Bradford Serrano MD [Primary Care Provider] - 1-2 days Brian Fraser DO [Doctor of Osteopathic Medicine] - 1 Week Gerry Samuel DO [STAFF PHYSICIAN] - 1 Week Activity/Diet/Wound Care/Special Instructions: Activity limited until follow-up Follow-up with primary care provider on discharge Follow-up with pulmonary outpatient Follow-up with cardiology outpatient Continue taking medications as prescribed Discharge Disposition: HOME SELF-CARE
== END 2024-10-01 12:48 | disposition home or self-care (01) ==
LOC: EC 18:01 → 6NMEDSUR 20:31
PROVIDERS: ADMIT Hospitalist; ATTEND Hospitalist
DX: J44.0 Chronic obstructive pulmonary disease with (acute) lower respiratory infection (principal); J44.1 Chronic obstructive pulmonary disease with (acute) exacerbation; J18.9 Pneumonia, unspecified organism; R03.0 Elevated blood-pressure reading, without diagnosis of hypertension; J43.9 Emphysema, unspecified; F17.210 Nicotine dependence, cigarettes, uncomplicated; Z86.73 Personal history of transient ischemic attack (TIA), and cerebral infarction without residual deficits; Z79.82 Long term (current) use of aspirin; Z88.0 Allergy status to penicillin; Z82.49 Family history of ischemic heart disease and other diseases of the circulatory system
CPT/HCPCS: 96376 ×2; 96366; 96372; 96361; 96365; 96367; 96375; 99285; 36415; 94640 ×3; 94760; 93005 ×2; 85379; 83880; 80053 ×2; 87449; 83690; 83735; 84484 ×2; 85025 ×2; 85610; 85730; 81003; 87040; 84145; 87636; 71046 ×2; G0378 ×2; J2270; J0456; J0696; J1650; J2919 ×2